=== PATIENT | male | born 1965 | race African-American/Black ===

== ENCOUNTER 2018-09-21 11:12 | Emergency (ER) | payer OTHER ==
[2018-09-21 11:38] VITALS: BMI 21.1
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
[2018-09-21] MEDS ORDERED: ACETAMINOPHEN 1000 MG/100 ML VIAL (NON FORMULARY) IVPB ONE (12:20)
[2018-09-21] MEDS ORDERED: SODIUM CHLORIDE 1,000 ML IV SCH (12:30)
[2018-09-21] MEDS ORDERED: VANCOMYCIN HCL 1,250 MG in DEXTROSE 5%-WATER - 250 ML IVPB ONE (12:36)
[2018-09-21] MEDS ORDERED: CLINDAMYCIN 600MG PREMIX IVPB 600 MG/50 ML BAG IVPB ONE ×2 (12:36→12:39)
[2018-09-21] MEDS ORDERED: ACETAMINOPHEN INJECTION 100 ML IVPB ONE (12:39)
[2018-09-21] MEDS ORDERED: VANCOMYCIN 1 GRAM (PRE-DOCKED) 1,000 MG/250 ML BAG IVPB ONE (12:53)
[2018-09-21] MEDS ORDERED: DEXAMETHASONE SOD PHOSPHATE 10 MG/1 ML VIAL IVPUSH ONE (12:58)
[2018-09-21 13:15] LABS: BASO % 0.3 % (0-2.0); EOS % 0.2 % (0-4.5); HEMATOCRIT 40.9 % (35.4-49); HEMOGLOBIN 13.6 GM/dL (11.7-16.9); LYMPH % 1.8 % (8-40); MCH 29.2 pg (25.7-33.7); MCHC 33.2 g/dl (32.0-35.9); MEAN CELL VOLUME 87.9 fl (80-96); MEAN PLT VOLUME 8.3 fl (7.5-11.1); MONO % 5.9 % (3.8-10.2); NEUT % 91.8 % (42.8-82.8); PLATELET COUNT 262 K/MM3 (134-434); RBC 4.65 M/mm3 (4.00-5.60); RDW 13.9 % (11.9-15.9); WHITE BLOOD COUNT 25.7 K/mm3 (4.0-10.0)
[2018-09-21 13:48] LABS: ALBUMIN 4.2 g/dl (3.4-5.0); ALK PHOS 70 U/L (45-117); ANION GAP 7 MMOL/L (8-16); BLOOD UREA NITROGEN 9 mg/dL (7-18); CALCIUM 9.8 mg/dL (8.5-10.1); CHLORIDE 98 mmol/L (98-107); CO2 26 mmol/L (21-32); CREATININE 1.1 mg/dL (0.55-1.3); GLUCOSE,RANDOM 128 mg/dL (74-106); POTASSIUM 4.1 mmol/L (3.5-5.1); SGOT/AST 26 U/L (15-37); SGPT/ALT 38 U/L (13-61); SODIUM 131 mmol/L (136-145)
[2018-09-21 14:04] LABS: ANISOCYTOSIS 0; HELMET CELLS 0; HOWELL-JOLLY BODIES 0; MACROCYTOSIS 0; OVALOCYTE 0; PLATELET ESTIMATE NORMAL; ROULEAU 0; SICKELED CELLS 0; TARGET CELLS 0; TEAR DROP CELLS 0; TOXIC GRANULATION 0
[2018-09-21] MEDS ORDERED: DEXAMETHASONE SOD PHOSPHATE 10 MG/1 ML VIAL ONE (14:41)
[2018-09-21] MEDS ORDERED: CEFTRIAXONE 2,000 MG in DEXTROSE 5%-WATER - 50 ML IVPB ONE (14:49)
--- NOTE | 2018-09-21 15:17 | PDOC ---
Documentation entered by Jameson Garrett SCRIBE, acting as scribe for Isauro New MD. Isauro New MD: This documentation has been prepared by the Gerry quiroga Collisia, SCRIBE, under my direction and personally reviewed by me in its entirety. I confirm that the documentation accurately reflects all work, treatment, procedures, and medical decision making performed by me. Attending Attestation - Resident Resident Name: Irene Gorman - ED Attending Attestation I have performed the following: I have examined & evaluated the patient, The case was reviewed & discussed with the resident, I agree w/resident's findings & plan, Exceptions are as noted - HPI HPI: 09/21/18 12:51 The patient is a 53 year old male with a significant past medical history of chronic back pain who presents to the emergency department with left ear pain for 3 days. The patient states that he went to [facility] yesterday for evaluation by which he was prescribed ear drops. 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 Denies drooling or trouble breathing. The patient denies any headache, dizziness, lightheadedness, chills, nausea, vomiting, diarrhea, constipation or urinary symptoms. Denies focal weakness/numbness. The patient denies any chest pain, shortness of breath. He denies any other complaints. - Physicial Exam PE: 09/21/18 15:02 GENERAL: Awake, alert, and fully oriented, in no acute distress. Non toxic. Handling secretions, no stridor HEAD: No signs of trauma EYES: PERRLA, EOMI, sclera anicteric, conjunctiva clear ENT: Auricles normal inspection, hearing grossly normal, no posterior auricular ttp, no abduction of L ear. Nares patent, +trismus and L peritonsillar mass, submandibular compartment unremarkable. NECK: +LAD to L submandiblar region LUNGS: Breath sounds equal, clear to auscultation bilaterally. No wheezes, and no crackles HEART: Regular rate and rhythm, normal S1 and S2, no murmurs, rubs or gallops ABDOMEN: Soft, nontender, normoactive bowel sounds. No guarding, no rebound. No masses EXTREMITIES: Normal range of motion, no edema. No cords, erythema, or tenderness NEUROLOGICAL: normal speech, cranial nerves intact, equal strength and sensation b/l SKIN: Warm, Dry, normal turgor, no rashes or lesions noted. - Medical Decision Making 09/21/18 15:55 53yo M presents to the ED with progressive sore throat, L ear pain, voice change , difficulty opening mouth. Pt handling secretions, lying flat in no resp distress. +fever to 101.7, WBC 26. Pt covered with Vanc, clindamycin, ceftriaxone. CT facial bones and neck soft tissue with IV contrast consistent with L PAGE DESIGNER extending down the hypopharynx to level of vallecula. No ENT senior solutions architect here, will transfer for ENT evaluation given extension down hypopharynx and trismus. Pt accepted to [facility] ER to ER transfer (see Dr. Macias note for details ) 09/21/18 16:53 Pt transported to [facility]
[2018-09-21] MEDS ORDERED: CEFTRIAXONE 2 GM/100 ML BAG IVPB ONE (16:03)
[2018-09-21] MEDS ORDERED: KETOROLAC TROMETHAMINE 15 MG/ML VIAL ONE (16:43)
[2018-09-21 16:54] VITALS: BP 124/74; PULSE 64; TEMP 101.3
[2018-09-21] MEDS ORDERED: KETOROLAC TROMETHAMINE 15 MG/ML VIAL IVPUSH ONE (16:54)
== END 2018-09-21 16:55 | disposition short-term general hospital (02) ==
LOC: JER 11:12
PROC: 3E0333Z Introduction of Anti-inflammatory into Peripheral Vein, Percutaneous Approach (ICD-10-PCS; principal; 2018-09-21)
PROC: 3E03329 Introduction of Other Anti-infective into Peripheral Vein, Percutaneous Approach (ICD-10-PCS; 2018-09-21)
PROC: 3E0333Z Introduction of Anti-inflammatory into Peripheral Vein, Percutaneous Approach (ICD-10-PCS; 2018-09-21)
PROC: 3E0333Z Introduction of Anti-inflammatory into Peripheral Vein, Percutaneous Approach (ICD-10-PCS; 2018-09-21)
PROC: 3E033NZ Introduction of Analgesics, Hypnotics, Sedatives into Peripheral Vein, Percutaneous Approach (ICD-10-PCS; 2018-09-21)
DX: J36 Peritonsillar abscess (principal)
CPT/HCPCS: 36415; 70487-TC; 70491-TC; 80053; 85025; 87040; 87070; 87077; 87804; 87880; 96365; 96367; 96375; 99283-25; J0131; J1100; J7030

== ENCOUNTER 2022-03-08 08:42 | Inpatient (IN) | payer OTHER ==
[2022-03-08 09:57] VITALS: BMI 21.1
[2022-03-08] MEDS ORDERED: MAGNESIUM CITRATE 300 ML BOTTLE PO PRN (10:09)
[2022-03-08] MEDS ORDERED: LOPERAMIDE HCL 2 MG CAPSULE PO PRN (10:09)
[2022-03-08] MEDS ORDERED: MAG HYDROX/AL HYDROX/SIMETH 30 ML UNIT-DOSE CUP PO PRN (10:09)
[2022-03-08] MEDS ORDERED: BENZOCAINE/MENTHOL (CHLORASEPTIC ) LOZENGE MM PRN (10:09)
[2022-03-08] MEDS ORDERED: guaiFENesin 200 MG/10 ML 10 ML UNIT-DOSE CUPS PO PRN (10:09)
[2022-03-08] MEDS ORDERED: MAGNESIUM HYDROX 2400MG/30ML ORAL SUSPENSION 30 ML CUP PO PRN (10:09)
[2022-03-08] MEDS ORDERED: IBUPROFEN 400 MG TABLET (FP) PO PRN (10:09)
[2022-03-08] MEDS ORDERED: P-EPHED 60MG/TRIPROLIDI 2.5MG TABLET PO PRN (10:09)
[2022-03-08] MEDS ORDERED: TUBERCULIN PPD 5 TU/0.1ML VIAL ID ONE (13:34)
[2022-03-08 14:41] LABS: HEMATOCRIT 38.8 % (35.4-49); HEMOGLOBIN 12.9 GM/dL (11.7-16.9); MCHC 33.1 g/dl (32.0-35.9); MEAN CELL VOLUME 87.6 fl (80-96); MEAN PLT VOLUME 7.8 fl (7.5-11.1); PLATELET COUNT 285 10^3/uL (134-434); RBC 4.43 M/mm3 (4.00-5.60); RDW 15.6 % (11.9-15.9); WHITE BLOOD COUNT 7.5 K/mm3 (4.0-10.0)
[2022-03-08 14:56] LABS: ALBUMIN 4.6 g/dl (3.4-5.0); BLOOD UREA NITROGEN 6.8 mg/dL (7-18); CALCIUM 9.6 mg/dL (8.5-10.1)
[2022-03-08 15:00] LABS: BILIRUBIN,TOTAL 0.6 mg/dL (0.2-1); TOT PROT 9.2 g/dl (6.4-8.2)
[2022-03-08 16:53] LABS: SYPHILIS W/ RPR CONF REACTIVE (NONREACTIVE)
[2022-03-08] MEDS: MELATONIN 5 MG TABLETS PO PRN (21:08)
[2022-03-08] MEDS: THIAMINE HCL 100 MG TABLET (FP) PO SCH (21:08)
[2022-03-09] MEDS: PRENATAL VITAMINS W/ FOLIC ACID TABLET (FP) PO SCH (10:19)
[2022-03-09] MEDS: THIAMINE HCL 100 MG TABLET (FP) PO SCH (21:14)
[2022-03-09] MEDS: MELATONIN 5 MG TABLETS PO PRN (21:15)
[2022-03-10] MEDS: PRENATAL VITAMINS W/ FOLIC ACID TABLET (FP) PO SCH (09:41)
[2022-03-10 16:59] LABS: PH,URINE 8.5 (5.0-8.0); URINE APPEARANCE CLEAR; URINE BILIRUBIN NEGATIVE (NEGATIVE); URINE COLOR YELLOW; URINE GLUCOSE (UA) NEGATIVE (NEGATIVE); URINE KETONE NEGATIVE (NEGATIVE); URINE LEUK ESTERASE NEGATIVE (NEGATIVE); URINE NITRITE NEGATIVE (NEGATIVE); URINE PROTEIN NEGATIVE (NEGATIVE)
[2022-03-10] MEDS: diphenhydrAMINE HCL 25 MG CAPSULE (FP) PO SCH (21:05)
[2022-03-10] MEDS: THIAMINE HCL 100 MG TABLET (FP) PO SCH (21:05)
[2022-03-11] MEDS: PRENATAL VITAMINS W/ FOLIC ACID TABLET (FP) PO SCH (09:51)
[2022-03-11] MEDS: THIAMINE HCL 100 MG TABLET (FP) PO SCH (21:08)
[2022-03-11] MEDS: diphenhydrAMINE HCL 25 MG CAPSULE (FP) PO SCH (21:08)
[2022-03-11] MEDS: ACETAMINOPHEN 325 MG TABLET (FP) PO PRN (21:10)
[2022-03-12] MEDS: PRENATAL VITAMINS W/ FOLIC ACID TABLET (FP) PO SCH (09:46)
[2022-03-12] MEDS: ACETAMINOPHEN 325 MG TABLET (FP) PO PRN ×2 (09:47→21:01)
[2022-03-12] MEDS: THIAMINE HCL 100 MG TABLET (FP) PO SCH (21:01)
[2022-03-12] MEDS: diphenhydrAMINE HCL 25 MG CAPSULE (FP) PO SCH (21:01)
[2022-03-13] MEDS: PRENATAL VITAMINS W/ FOLIC ACID TABLET (FP) PO SCH (10:00)
[2022-03-13] MEDS: ACETAMINOPHEN 325 MG TABLET (FP) PO PRN ×2 (10:00→21:01)
[2022-03-13] MEDS: diphenhydrAMINE HCL 25 MG CAPSULE (FP) PO SCH (21:01)
[2022-03-13] MEDS: THIAMINE HCL 100 MG TABLET (FP) PO SCH (21:01)
[2022-03-14] MEDS: PRENATAL VITAMINS W/ FOLIC ACID TABLET (FP) PO SCH (09:48)
[2022-03-14] MEDS: ACETAMINOPHEN 325 MG TABLET (FP) PO PRN ×2 (09:49→21:02)
[2022-03-14] MEDS: diphenhydrAMINE HCL 25 MG CAPSULE (FP) PO SCH (21:02)
[2022-03-14] MEDS: THIAMINE HCL 100 MG TABLET (FP) PO SCH (21:03)
[2022-03-15] MEDS: ACETAMINOPHEN 325 MG TABLET (FP) PO PRN ×2 (09:39→21:16)
[2022-03-15] MEDS: PRENATAL VITAMINS W/ FOLIC ACID TABLET (FP) PO SCH (09:39)
[2022-03-15] MEDS: MELATONIN 5 MG TABLETS PO PRN (21:18)
[2022-03-15] MEDS: diphenhydrAMINE HCL 25 MG CAPSULE (FP) PO SCH (21:18)
[2022-03-15] MEDS: THIAMINE HCL 100 MG TABLET (FP) PO SCH (21:18)
[2022-03-16] MEDS: PRENATAL VITAMINS W/ FOLIC ACID TABLET (FP) PO SCH (09:59)
[2022-03-16] MEDS: diphenhydrAMINE HCL 25 MG CAPSULE (FP) PO SCH (21:21)
[2022-03-16] MEDS: THIAMINE HCL 100 MG TABLET (FP) PO SCH (21:21)
[2022-03-17] MEDS: PRENATAL VITAMINS W/ FOLIC ACID TABLET (FP) PO SCH (10:12)
[2022-03-17] MEDS: THIAMINE HCL 100 MG TABLET (FP) PO SCH (21:02)
[2022-03-17] MEDS: diphenhydrAMINE HCL 25 MG CAPSULE (FP) PO SCH (21:02)
[2022-03-18] MEDS: PRENATAL VITAMINS W/ FOLIC ACID TABLET (FP) PO SCH (09:59)
[2022-03-18] MEDS: diphenhydrAMINE HCL 25 MG CAPSULE (FP) PO SCH (21:12)
[2022-03-18] MEDS: THIAMINE HCL 100 MG TABLET (FP) PO SCH (21:12)
[2022-03-19] MEDS: PRENATAL VITAMINS W/ FOLIC ACID TABLET (FP) PO SCH (10:11)
[2022-03-19] MEDS: diphenhydrAMINE HCL 25 MG CAPSULE (FP) PO SCH (21:23)
[2022-03-19] MEDS: THIAMINE HCL 100 MG TABLET (FP) PO SCH (21:23)
[2022-03-20] MEDS: ACETAMINOPHEN 325 MG TABLET (FP) PO PRN ×2 (09:46→21:40)
[2022-03-20] MEDS: PRENATAL VITAMINS W/ FOLIC ACID TABLET (FP) PO SCH (09:46)
[2022-03-20] MEDS: diphenhydrAMINE HCL 25 MG CAPSULE (FP) PO SCH (21:40)
[2022-03-20] MEDS: THIAMINE HCL 100 MG TABLET (FP) PO SCH (21:41)
[2022-03-20] MEDS: MELATONIN 5 MG TABLETS PO PRN (21:41)
[2022-03-21] MEDS: PRENATAL VITAMINS W/ FOLIC ACID TABLET (FP) PO SCH (09:55)
[2022-03-21] MEDS: ACETAMINOPHEN 325 MG TABLET (FP) PO PRN ×2 (09:56→21:53)
[2022-03-21] MEDS: MELATONIN 5 MG TABLETS PO PRN (21:53)
[2022-03-21] MEDS: diphenhydrAMINE HCL 25 MG CAPSULE (FP) PO SCH (21:53)
[2022-03-21] MEDS: THIAMINE HCL 100 MG TABLET (FP) PO SCH (21:53)
[2022-03-22 06:48] VITALS: BP 125/85; PULSE 57; RESP 18; TEMP 97.8
[2022-03-22] MEDS: PRENATAL VITAMINS W/ FOLIC ACID TABLET (FP) PO SCH (10:10)
[2022-03-22] MEDS: ACETAMINOPHEN 325 MG TABLET (FP) PO PRN (10:11)
== END 2022-03-22 10:15 | disposition home or self-care (01) | DRG 772 ==
LOC: YASAS 08:42 → Y5N 12:34
PROVIDERS: ADMIT Allergy & Immunology; ATTEND Psychiatry & Neurology Pain Medicine
PROC: HZ42ZZZ Group Counseling for Substance Abuse Treatment, Cognitive-Behavioral (ICD-10-PCS; principal; 2022-03-08)
DX: F10.20 Alcohol dependence, uncomplicated (principal); F14.20 Cocaine dependence, uncomplicated; F16.10 Hallucinogen abuse, uncomplicated; F20.9 Schizophrenia, unspecified; M54.50 Low back pain, unspecified; G89.29 Other chronic pain; M62.838 Other muscle spasm; R76.8 Other specified abnormal immunological findings in serum; R00.1 Bradycardia, unspecified; Z62.810 Personal history of physical and sexual abuse in childhood; Z56.0 Unemployment, unspecified; Z59.00 Homelessness unspecified
CPT/HCPCS: 36415; 80053; 81003; 85027; 86593; 86780; 86803; C9803-CS; U0003; U0005

== ENCOUNTER 2024-11-30 08:25 | Inpatient (IN) | payer OTHER ==
[2024-11-30 08:50] VITALS: BMI 20.8
[2024-11-30] MEDS ORDERED: hydrOXYzine PAMOATE 25 MG CAPSULE (FP) PO PRN (09:22)
[2024-11-30] MEDS ORDERED: NALOXONE (NARCAN) HCL 4 MG/0.1 ML SPRAY NS PRN (09:22)
[2024-11-30] MEDS ORDERED: POLYETHYLENE GLYCOL (HEALTHYLAX) 3350 17 GM PACKET PO PRN (09:22)
[2024-11-30] MEDS ORDERED: guaiFENesin 600 MG TABLET.ER (FP) PO PRN (09:22)
[2024-11-30] MEDS ORDERED: LOPERAMIDE HCL 2 MG CAPSULE PO PRN (09:22)
[2024-11-30] MEDS ORDERED: BENZOCAINE/MENTHOL (CHLORASEPTIC ) LOZENGE MM PRN (09:22)
[2024-11-30] MEDS ORDERED: MAG HYDROX/AL HYDROX/SIMETH 30 ML UNIT-DOSE CUP PO PRN (09:22)
[2024-11-30] MEDS ORDERED: MAGNESIUM HYDROX 2400MG/30ML ORAL SUSPENSION 30 ML CUP PO PRN (09:22)
[2024-11-30] MEDS ORDERED: BENZONATATE 200 MG CAPSULE PO PRN (09:22)
[2024-11-30] MEDS ORDERED: PRENATAL VITAMINS W/ FOLIC ACID TABLET (FP) PO ONE (10:35)
[2024-11-30] MEDS: PRENATAL VITAMINS W/ FOLIC ACID TABLET (FP) PO SCH (10:36)
[2024-11-30] MEDS: LIDOCAINE 5% TOPICAL PATCH TP SCH (10:46)
[2024-11-30] MEDS: ACAMPROSATE CALCIUM 333 MG TABLET.DR PO SCH (14:55)
[2024-11-30 18:55] LABS: EPI CELLS 5 /uL (0-25.1); HYALINE CASTS 1 /uL (0-3.1); URINE APPEARANCE CLEAR; URINE BACTERIA 4 /uL (0-1359); URINE BILIRUBIN NEGATIVE (NEGATIVE); URINE COLOR YELLOW; URINE GLUCOSE (UA) NEGATIVE (NEGATIVE); URINE KETONE TRACE (NEGATIVE); URINE LEUK ESTERASE NEGATIVE (NEGATIVE); URINE NITRITE NEGATIVE (NEGATIVE); URINE PROTEIN 1+ (NEGATIVE); URINE RBC 6 /uL (0-23.9); URINE UROBILINOGEN 1.0 mg/dL (0.2-1.0); URINE WBC 6 /uL (0-25.8)
[2024-11-30] MEDS: LIDOCAINE PATCH REMOVAL MC SCH (22:13)
[2024-11-30] MEDS: THIAMINE 100 MG TABLET PO SCH (22:13)
[2024-11-30] MEDS: MELATONIN 5 MG TABLETS PO SCH (22:13)
[2024-12-01 08:14] LABS: MCHC 32.4 g/dl (32.3-36.5); MEAN CELL VOLUME 88.3 fl (79.0-92.2); MEAN PLT VOLUME 9.8 fl (9.4-12.4); RDW 13.2 % (12.2-16.1)
[2024-12-01 08:20] LABS: CO2 29.0 mmol/L (21-32); GLUCOSE,RANDOM 129.0 mg/dL (74-106)
[2024-12-01 08:23] LABS: CREATININE 0.8 mg/dL (0.55-1.3); SGOT/AST 22.0 U/L (15-37); SGPT/ALT 24.0 U/L (13-61)
[2024-12-01 08:25] LABS: TOT PROT 6.4 g/dl (6.4-8.2)
[2024-12-01 08:26] LABS: ALK PHOS 60.0 U/L (45-117)
[2024-12-01] MEDS: IBUPROFEN 600 MG TABLET (FP) PO PRN (10:12)
[2024-12-01] MEDS: diphenhydrAMINE HCL 25 MG CAPSULE (FP) PO SCH (21:54)
[2024-12-01] MEDS: ACETAMINOPHEN 325 MG TABLET (FP) PO PRN (21:56)
[2024-12-03] MEDS: IBUPROFEN 400 MG TABLET (FP) PO PRN (10:07)
[2024-12-04] MEDS: GABAPENTIN 100 MG CAPSULE PO SCH (21:13)
[2024-12-06] MEDS: FERROUS SO4 325 MG TABLET (FP) PO SCH (07:10)
[2024-12-10 05:52] VITALS: BP 109/79; PULSE 84; RESP 16; TEMP 98.6
== END 2024-12-10 08:45 | disposition home or self-care (01) | DRG 772 ==
LOC: YASAS 08:25 → Y3NR 09:59 → Y3W 12-02 09:21
PROVIDERS: ADMIT Family Medicine; ATTEND Psychiatry & Neurology Pain Medicine
PROC: HZ42ZZZ Group Counseling for Substance Abuse Treatment, Cognitive-Behavioral (ICD-10-PCS; principal; 2024-11-30)
DX: F10.20 Alcohol dependence, uncomplicated (principal); F12.20 Cannabis dependence, uncomplicated; F16.20 Hallucinogen dependence, uncomplicated
CPT/HCPCS: 36415; 80053; 80305; 80307; 81003; 82962; 85027; 86593; 86780; 87811; 93005; 93010

== ENCOUNTER 2024-12-05 13:44 | Emergency (ER) | payer OTHER ==
[2024-12-05 14:18] VITALS: BP 121/84; PULSE 87; RESP 18; TEMP 98.1; BMI 21.1
[2024-12-05 15:25] LABS: ABSOLUTE IMMATURE GRANULOCYTES 0.04 x10^3/uL (0.0-0.031); BASOPHILS # 0.05 x10^3/uL (0.01-0.08); EOSINOPHIL % 5.7 % (0.8-7.0); EOSINOPHILS # 0.55 x10^3/uL (0.04-0.54); MCHC 33.1 g/dl (32.3-36.5); MEAN CELL VOLUME 87.8 fl (79.0-92.2); MEAN PLT VOLUME 9.2 fl (9.4-12.4); MONOCYTE # 0.95 x10^3/uL (0.30-0.82); MONOCYTE % 9.9 % (5.3-12.2); RDW 13.6 % (12.2-16.1)
[2024-12-05 15:54] LABS: CO2 29.0 mmol/L (21-32); GLUCOSE,RANDOM 88.0 mg/dL (74-106)
[2024-12-05 15:57] LABS: CREATININE 0.9 mg/dL (0.55-1.3); SGOT/AST 21.0 U/L (15-37); SGPT/ALT 31.0 U/L (13-61)
[2024-12-05 15:59] LABS: TOT PROT 8.0 g/dl (6.4-8.2)
[2024-12-05 16:00] LABS: ALK PHOS 70.0 U/L (45-117)
[2024-12-05 16:57] LABS: HCV DIAGNOSTIC IN-HOUSE W/RFLX NON-REACTIVE (NONREACTIVE); HIV INTERPRETATION NEGATIVE (NEGATIVE)
== END 2024-12-05 17:00 | disposition home or self-care (01) ==
LOC: JER 13:44
DX: K62.5 Hemorrhage of anus and rectum (principal)
CPT/HCPCS: 36415; 80053; 83735; 85025; 86803; 86850; 86900; 86901; 87389; 99291; 99292